=== PATIENT | female | born 1950 | race Caucasian/White ===

== ENCOUNTER 2020-07-06 16:00 | Emergency (ER) | payer OTHER ==
--- NOTE | 2020-07-06 16:08 | PDOC ---
Rapid Medical Evaluation Time Seen by Provider: 07/06/20 16:07 Medical Evaluation: Allergies Allergy/AdvReac Type Severity Reaction Status Date / Time codeine Allergy Rash Verified 03/23/20 17:48 iodine [Iodine] Allergy Rash Verified 03/23/20 17:48 Penicillins Allergy Rash Verified 03/23/20 17:48 07/06/20 16:07 I have performed a brief in-person examination on this patient. CC: atraumatic left knee pain. PE: No bony tenderness. TTP to left popliteal. Orders: xray Patient will proceed to ED for further evaluation. Discharge Disposition - Diagnosis Knee pain - Referrals - Patient Instructions - Post Discharge Activity
[2020-07-06 16:15] VITALS: BP 141/69; PULSE 66; TEMP 98.6; BMI 29.2
--- NOTE | 2020-07-06 17:11 | PDOC ---
History of Present Illness - General Chief Complaint: Injury Stated Complaint: FALL Time Seen by Provider: 07/06/20 16:07 - History of Present Illness Initial Comments: 07/06/20 17:10 69-year-old female with multiple comorbidities coronary artery disease and diabetes presents for evaluation of left knee pain. She states she was walking she felt her left knee buckle and had an sudden onset of pain. No prior problems with the left knee. Past History - Medical History Allergies/Adverse Reactions: Allergies Allergy/AdvReac Type Severity Reaction Status Date / Time codeine Allergy Rash Verified 07/06/20 16:08 iodine [Iodine] Allergy Rash Verified 07/06/20 16:08 Penicillins Allergy Rash Verified 07/06/20 16:08 Home Medications: Ambulatory Orders Metoprolol Tartrate [Lopressor -] 25 mg PO HS 03/24/16 Letrozole [Femara -] 2.5 mg PO DAILY tablet 03/31/16 Aspirin [ASA -] 81 mg PO DAILY 03/23/20 Clopidogrel Bisulfate [Plavix -] 75 mg PO DAILY 03/23/20 Enalapril Maleate [Vasotec -] 10 mg PO BID 03/23/20 Metformin HCl [Glucophage] 1,000 mg PO BID 03/23/20 Metoprolol Tartrate [Lopressor -] 50 mg PO AM 03/23/20 Pravastatin Sodium 20 mg PO HS 03/23/20 Anemia: No Asthma: No Cancer: Yes (B/L BREAST4 yrs ago) Cardiac Disorders: No CVA: No COPD: No CHF: No Dementia: No Diabetes: No GI Disorders: Yes (GERD) Disorders: Yes (H/O UTI ESBL, Renal Calculi) HTN: Yes Hypercholesterolemia: Yes Liver Disease: No Seizures: No Thyroid Disease: No - Surgical History Abdominal Surgery: No Appendectomy: No Cardiac Surgery: No Cholecystectomy: Yes (38 yrs ago) Lung Surgery: No Neurologic Surgery: No Orthopedic Surgery: No - Immunization History Immunization Up to Date: Yes () - Psycho-Social/Smoking History Smoking Status: No Smoking History: Former smoker Have you smoked in the past 12 months: No Number of Cigarettes Smoked Daily: 0 If you are a former smoker, when did you quit?: 2012 Information on smoking cessation initiated: No 'Breaking Loose' booklet given: 04/22/13 - Substance Abuse Hx (Audit-C & DAST Scrn) How often the patient has a drink containing alcohol: Never Score: In Men: 4 or > Positive; In Women: 3 or > Positive: 0 Screen Result (Pos requires Nsg. Audit-10AR): Negative In the last yr the pt used illegal drug/Rx for NonMed reason: No Score: Yes response is considered Positive: 0 Screen Result (Positive result requires Nsg. DAST-10): Negative Review of Systems - Review of Systems Musculoskeletal: Yes: Joint Pain *Physical Exam - Vital Signs Last Vital Signs Temp Pulse Resp BP Pulse Ox 98.6 F 66 16 141/69 98 07/06/20 16:08 07/06/20 16:08 07/06/20 16:08 07/06/20 16:08 07/06/20 16:08 - Physical Exam 07/06/20 17:10 Left knee skin color and temperature normal extensor mechanism is intact. 0 to 90 degrees. She is unable to tolerate stability testing she has no intra- articular effusion diffuse tenderness thigh and calf soft and nontender normal ankle and hip range of motion neurovascular intact Medical Decision Making - Medical Decision Making 07/06/20 17:10 No fracture trauma or destructive process on radiograph. Unable to rule out a tibial plateau fracture based on this view. Knee immobilizer nonweightbearing follow-up with orthopedics. Patient is in agreement Tylenol for pain I have reviewed the pathophysiology with the patient. They are in agreement with the treatment plan all questions were answered to their satisfaction. Understanding for follow-up without fail was also conveyed to the patient. Again they are in agreement. Discharge - Discharge Information Problems reviewed: Yes Clinical Impression/Diagnosis: Knee pain Condition: Stable Disposition: HOME - Admission No - Follow up/Referral Referrals: Jennifer Ferraro MD [Primary Care Provider] - Silvestre Apple DO [Staff Physician] - - Patient Discharge Instructions Additional Instructions: Remain nonweightbearing with the crutches and knee immobilizer. Tylenol as directed for pain. Return to the emergency room for worsening symptoms and without fail follow-up with orthopedic surgery in 1 to 2 days for further evaluation and treatment options. - Post Discharge Activity
[2020-07-06] MEDS ORDERED: ACETAMINOPHEN 500 MG TABLET (FP) PO ONE (17:31)
== END 2020-07-06 17:30 | disposition home or self-care (01) ==
LOC: JERFT 16:00
DX: M25.562 Pain in left knee (principal)
CPT/HCPCS: 73560-TC-LT-FY; 99283-25

== ENCOUNTER 2020-11-10 12:31 | Emergency (ER) | payer OTHER ==
[2020-11-10 12:55] VITALS: BMI 28.3
[2020-11-10] MEDS ORDERED: BAMLANIVIMAB 700 MG in SODIUM CHLORIDE 250 ML IVPB ONE (13:11)
[2020-11-10 16:05] VITALS: BP 99/49; PULSE 64; TEMP 98.4
[2020-11-10 16:37] LABS: HEMATOCRIT 41.1 % (32.4-45.2); HEMOGLOBIN 13.8 GM/dL (10.7-15.3); MCH 28.2 pg (25.7-33.7); MCHC 33.5 g/dl (32.0-36.0); MEAN CELL VOLUME 84.1 fl (80-96); MEAN PLT VOLUME 8.1 fl (7.5-11.1); PLATELET COUNT 193 K/MM3 (134-434); RBC 4.89 M/mm3 (3.60-5.2); RDW 16.1 % (11.6-15.6); WHITE BLOOD COUNT 4.4 K/mm3 (4.0-10.0)
[2020-11-10 16:53] LABS: POTASSIUM 5.8 mmol/L (3.5-5.1)
[2020-11-10 16:56] LABS: BLOOD UREA NITROGEN 18.4 mg/dL (7-18); CALCIUM 9.2 mg/dL (8.5-10.1)
[2020-11-10 17:00] LABS: CREATININE 0.9 mg/dL (0.55-1.3)
== END 2020-11-10 17:35 | disposition home or self-care (01) ==
LOC: JCOVINFU 12:31
DX: U07.1 COVID-19 (principal)
CPT/HCPCS: 36415; 80048; 85027; 96374; 99284-25; M0239; Q0239

== ENCOUNTER 2021-05-28 04:45 | Day surgery (SDC) | payer OTHER ==
[2021-04-07 14:51] VITALS: BMI 28.8
[2021-05-28 12:41] VITALS: BP 125/58; PULSE 65; TEMP 97.8
== END 2021-05-28 14:02 | disposition home or self-care (01) ==
LOC: JASU-ENDO 04:45
PROVIDERS: ATTEND Internal Medicine Gastroenterology
PROC: 0DJD8ZZ Inspection of Lower Intestinal Tract, Via Natural or Artificial Opening Endoscopic (ICD-10-PCS; principal; 2021-05-28 11:45)
DX: Z12.11 Encounter for screening for malignant neoplasm of colon (principal); K57.30 Diverticulosis of large intestine without perforation or abscess without bleeding; K64.8 Other hemorrhoids; Z86.010 Personal history of colon polyps; Z98.0 Intestinal bypass and anastomosis status; Z80.0 Family history of malignant neoplasm of digestive organs
CPT/HCPCS: 82962

== ENCOUNTER 2022-01-02 02:45 | Observation (INO) | payer OTHER ==
[2022-01-02] MEDS ORDERED: ACETAMINOPHEN 1000 MG/100 ML BAG IVPB ONE (03:44)
[2022-01-02] MEDS ORDERED: METOCLOPRAMIDE HCL INJECTION 10 MG/2 ML VIAL IVPUSH ONE (03:44)
[2022-01-02] MEDS ORDERED: METOCLOPRAMIDE HCL INJECTION 10 MG/2 ML VIAL ONE (04:18)
[2022-01-02 04:19] LABS: INR 0.92 (0.83-1.09); PROTHROMBIN TIME (PATIENT) 10.6 SEC (9.7-13.0)
[2022-01-02] MEDS ORDERED: ACETAMINOPHEN INJECTION 100 ML IVPB ONE (04:19)
[2022-01-02 04:22] LABS: ACTIVATED PTT 32.3 SECONDS (25.2-36.5)
[2022-01-02 04:30] LABS: BASO % 0.9 % (0-2.0); EOS % 2.5 % (0-4.5); HEMOGLOBIN 13.8 GM/dL (10.7-15.3); LYMPH % 17.6 % (8-40); MCH 27.6 pg (25.7-33.7); MEAN CELL VOLUME 83.6 fl (80-96); MEAN PLT VOLUME 8.2 fl (7.5-11.1); PLATELET COUNT 266 10^3/uL (134-434); RBC 5.02 M/mm3 (3.60-5.2); RDW 15.9 % (11.6-15.6); WHITE BLOOD COUNT 7.7 K/mm3 (4.0-10.0)
[2022-01-02 04:34] LABS: BLOOD UREA NITROGEN 15.5 mg/dL (7-18); CALCIUM 9.7 mg/dL (8.5-10.1); MAGNESIUM 1.7 mg/dL (1.8-2.4)
[2022-01-02 04:37] LABS: CREATININE 0.8 mg/dL (0.55-1.3)
[2022-01-02 04:39] LABS: BILIRUBIN,TOTAL 0.6 mg/dL (0.2-1)
[2022-01-02 05:14] VITALS: TEMP 98.9; BMI 28.3
[2022-01-02 06:16] LABS: ERYTHROCYTE SEDIMENTATION RATE 12 mm/hr (0-30)
[2022-01-02] MEDS ORDERED: ASPIRIN 325 MG TABLET PO ONE (06:40)
[2022-01-02] MEDS ORDERED: ASPIRIN 325 MG TABLET ONE (06:51)
[2022-01-02] MEDS ORDERED: ENOXAPARIN NA (PORCINE) 40 MG/0.4 ML DISP.SYRIN SQ ONE (09:27)
[2022-01-02] MEDS ORDERED: ENOXAPARIN NA (PORCINE) 40 MG/0.4 ML DISP.SYRIN SQ SCH (10:00)
[2022-01-02] MEDS ORDERED: ASPIRIN 81 MG CHEWABLE TABLETS PO SCH (10:00)
[2022-01-02] MEDS ORDERED: CLOPIDOGREL BISULFATE 75 MG TABLET (FP) PO SCH (10:00)
[2022-01-02] MEDS ORDERED: ENALAPRIL MALEATE 10 MG TABLET PO SCH (10:00)
[2022-01-02] MEDS ORDERED: ASPIRIN 81 MG CHEWABLE TABLETS ONE (10:27)
[2022-01-02] MEDS ORDERED: CLOPIDOGREL BISULFATE 75 MG TABLET (FP) ONE (10:27)
[2022-01-02] MEDS ORDERED: INSULIN SLIDING SCALE (NOVOLOG) 1 VIAL SQ SCH (11:00)
[2022-01-02 12:15] VITALS: BP 108/65; PULSE 80
[2022-01-02] MEDS ORDERED: ATORVASTATIN CA 40 MG TABLET (FP) PO SCH (22:00)
[2022-01-02] MEDS ORDERED: METOPROLOL TARTRATE 25 MG TABLET (FP) PO SCH (22:00)
[2022-01-03] MEDS ORDERED: METOPROLOL TARTRATE 50 MG TABLET (FP) PO SCH (07:00)
[2022-01-03] MEDS ORDERED: ENOXAPARIN NA (PORCINE) 40 MG/0.4 ML DISP.SYRIN SQ SCH (10:00)
== END 2022-01-02 13:38 | disposition home or self-care (01) ==
LOC: JER 02:45 → JERBED 06:30
PROVIDERS: ADMIT Internal Medicine Cardiovascular Disease; ATTEND Nurse Practitioner Acute Care
PROC: 3E033NZ Introduction of Analgesics, Hypnotics, Sedatives into Peripheral Vein, Percutaneous Approach (ICD-10-PCS; principal; 2022-01-02)
PROC: 3E023GC Introduction of Other Therapeutic Substance into Muscle, Percutaneous Approach (ICD-10-PCS; 2022-01-02)
PROC: 3E033GC Introduction of Other Therapeutic Substance into Peripheral Vein, Percutaneous Approach (ICD-10-PCS; 2022-01-02)
DX: R94.31 Abnormal electrocardiogram [ECG] [EKG] (principal); I10 Essential (primary) hypertension; R51.9 Headache, unspecified; Z95.5 Presence of coronary angioplasty implant and graft; R79.89 Other specified abnormal findings of blood chemistry; Z90.49 Acquired absence of other specified parts of digestive tract; Z29.9 Encounter for prophylactic measures, unspecified; C50.919 Malignant neoplasm of unspecified site of unspecified female breast; Z86.718 Personal history of other venous thrombosis and embolism; Z88.6 Allergy status to analgesic agent; Z88.0 Allergy status to penicillin; Z88.8 Allergy status to other drugs, medicaments and biological substances
CPT/HCPCS: 36415; 70450-TC; 80053; 82962; 83735; 84484; 85025; 85610; 85651; 85730; 86140; 86850; 86900; 86901; 93005; 93010; 96372; 96374; 96375; 99285-25; C9803-CS; G0378; U0003; U0005

== ENCOUNTER 2022-11-03 14:14 | Inpatient (IN) | payer OTHER ==
[2022-11-03 14:42] VITALS: BMI 27.6
[2022-11-03 16:30] LABS: EOS % 1.9 % (0-4.5); HEMATOCRIT 39.5 % (32.4-45.2); HEMOGLOBIN 13.2 GM/dL (10.7-15.3); LYMPH % 23.9 % (8-40); MCH 27.7 pg (25.7-33.7); MCHC 33.4 g/dl (32.0-36.0); MEAN CELL VOLUME 82.7 fl (80-96); MEAN PLT VOLUME 7.6 fl (7.5-11.1); MONO % 13.7 % (3.8-10.2); NEUT % 59.5 % (42.8-82.8); PLATELET COUNT 228 10^3/uL (134-434); RBC 4.78 M/mm3 (3.60-5.2); RDW 15.8 % (11.6-15.6); WHITE BLOOD COUNT 6.7 K/mm3 (4.0-10.0)
[2022-11-03 16:38] LABS: INR 1.17 (0.83-1.09); PROTHROMBIN TIME (PATIENT) 13.5 SEC (9.7-13.0)
[2022-11-03 16:40] LABS: ACTIVATED PTT 28.2 SECONDS (25.2-36.5)
[2022-11-03 16:57] LABS: CHLORIDE 102 mmol/L (98-107); SODIUM 138 mmol/L (136-145)
[2022-11-03 16:59] LABS: ALBUMIN 3.5 g/dl (3.4-5.0); ANION GAP 9 MMOL/L (8-16); CALCIUM 10.1 mg/dL (8.5-10.1); CO2 27 mmol/L (21-32); GLUCOSE,RANDOM 81 mg/dL (74-106)
[2022-11-03 17:00] LABS: BLOOD UREA NITROGEN 28.7 mg/dL (7-18)
[2022-11-03 17:02] LABS: CREATININE 1.1 mg/dL (0.55-1.3)
[2022-11-03 17:03] LABS: SGOT/AST 25 U/L (15-37); SGPT/ALT 16 U/L (13-61)
[2022-11-03 17:04] LABS: TOT PROT 7.8 g/dl (6.4-8.2)
[2022-11-03 17:05] LABS: ALK PHOS 96 U/L (45-117)
[2022-11-03] MEDS ORDERED: ASPIRIN 81 MG CHEWABLE TABLETS PO ONE (18:09)
[2022-11-03 18:47] LABS: MAGNESIUM 1.7 mg/dL (1.8-2.4)
[2022-11-03 18:50] LABS: CHOLESTEROL 171 mg/dL (50-200)
[2022-11-03 18:51] LABS: TRIGLYCERIDES 137 mg/dL (0-150)
[2022-11-03 18:52] LABS: LDL CHOLESTEROL (ONLY SJRH) 87 mg/dL (5-100)
[2022-11-03 18:53] LABS: HDL CHOLESTEROL 67 mg/dL (40-60)
[2022-11-03 18:55] LABS: N-TERMINAL BNP 2806.1 pg/ml (5-125)
[2022-11-03] MEDS ORDERED: ASPIRIN 81 MG CHEWABLE TABLETS ONE (19:12)
[2022-11-03] MEDS ORDERED: ATORVASTATIN CA 80 MG TABLET (FP) PO ONE (20:47)
[2022-11-03] MEDS ORDERED: ENOXAPARIN NA (PORCINE) 60 MG/0.6 ML DISP.SYRIN SQ ONE ×2 (21:00→21:13)
[2022-11-03] MEDS ORDERED: ATORVASTATIN CA 80 MG TABLET (FP) ONE (21:13)
[2022-11-04] MEDS ORDERED: MAGNESIUM 2GM/50ML STERILE WATER IVPB IVPB ONE (03:15)
[2022-11-04] MEDS: INSULIN SLIDING SCALE (NOVOLOG) 1 VIAL SQ SCH ×4 (07:04→21:16)
[2022-11-04 08:15] LABS: BASO % 1.1 % (0-2.0); EOS % 3.3 % (0-4.5); HEMATOCRIT 38.9 % (32.4-45.2); HEMOGLOBIN 12.7 GM/dL (10.7-15.3); LYMPH % 29.9 % (8-40); MCH 27.3 pg (25.7-33.7); MCHC 32.8 g/dl (32.0-36.0); MEAN CELL VOLUME 83.2 fl (80-96); MEAN PLT VOLUME 7.9 fl (7.5-11.1); MONO % 8.2 % (3.8-10.2); NEUT % 57.5 % (42.8-82.8); PLATELET COUNT 213 10^3/uL (134-434); RBC 4.67 M/mm3 (3.60-5.2); RDW 15.7 % (11.6-15.6); WHITE BLOOD COUNT 5.8 K/mm3 (4.0-10.0)
[2022-11-04 08:40] LABS: ALBUMIN 3.3 g/dl (3.4-5.0); CALCIUM 9.2 mg/dL (8.5-10.1); MAGNESIUM 2.5 mg/dL (1.8-2.4)
[2022-11-04 08:43] LABS: CREATININE 0.8 mg/dL (0.55-1.3); PHOSPHOROUS 3.7 mg/dL (2.5-4.9)
[2022-11-04 08:45] LABS: TOT PROT 6.9 g/dl (6.4-8.2)
[2022-11-04] MEDS: CLOPIDOGREL BISULFATE 75 MG TABLET (FP) PO SCH (09:09)
[2022-11-04] MEDS: ENOXAPARIN NA (PORCINE) 60 MG/0.6 ML DISP.SYRIN SQ SCH ×2 (09:09→21:21)
[2022-11-04] MEDS ORDERED: METOPROLOL TARTRATE 5 MG/5 ML VIAL IVPUSH SCH ×3 (09:15→14:00)
[2022-11-04] MEDS: METOPROLOL SUCCINATE 50 MG, METOPROLOL SUCCINATE 25 MG PO SCH (09:23)
[2022-11-04] MEDS ORDERED: ASPIRIN 81 MG CHEWABLE TABLETS PO SCH (10:00)
[2022-11-04] MEDS: LETROZOLE 2.5 MG TABLET (FP) PO SCH (10:46)
[2022-11-04] MEDS ORDERED: METOPROLOL TARTRATE 5 MG/5 ML VIAL IVPUSH PRN (17:56)
[2022-11-04] MEDS: ATORVASTATIN CA 80 MG TABLET (FP) PO SCH (21:21)
[2022-11-05] MEDS: INSULIN SLIDING SCALE (NOVOLOG) 1 VIAL SQ SCH ×4 (06:36→21:16)
[2022-11-05] MEDS: OMEGA-3 ACID ETHYL ESTERS (FATTY-ACIDS) 1 GM CAPSULE (FP) PO SCH (11:06)
[2022-11-05] MEDS: LETROZOLE 2.5 MG TABLET (FP) PO SCH (11:06)
[2022-11-05] MEDS: CLOPIDOGREL BISULFATE 75 MG TABLET (FP) PO SCH (11:06)
[2022-11-05] MEDS: METOPROLOL SUCCINATE 50 MG, METOPROLOL SUCCINATE 25 MG PO SCH (11:07)
[2022-11-05] MEDS: ENOXAPARIN NA (PORCINE) 60 MG/0.6 ML DISP.SYRIN SQ SCH (11:08)
[2022-11-05] MEDS: RANOLAZINE E.R. 500 MG TABLET (FP) PO SCH ×2 (11:09→21:15)
[2022-11-05] MEDS: VALSARTAN 40 MG TABLET PO SCH (11:09)
[2022-11-05] MEDS: PANTOPRAZOLE 40 MG TABLET PO SCH (13:31)
[2022-11-05] MEDS: SERTRALINE HCL 25 MG TABLET (FP) PO SCH (13:31)
[2022-11-05] MEDS: ATORVASTATIN CA 80 MG TABLET (FP) PO SCH (21:15)
[2022-11-06] MEDS: INSULIN SLIDING SCALE (NOVOLOG) 1 VIAL SQ SCH ×4 (06:26→21:54)
[2022-11-06 08:51] LABS: BASO % 0.6 % (0-2.0); EOS % 3.6 % (0-4.5); HEMATOCRIT 37.4 % (32.4-45.2); HEMOGLOBIN 12.7 GM/dL (10.7-15.3); LYMPH % 23.9 % (8-40); MCH 27.8 pg (25.7-33.7); MEAN CELL VOLUME 81.9 fl (80-96); MEAN PLT VOLUME 7.5 fl (7.5-11.1); MONO % 9.1 % (3.8-10.2); NEUT % 62.8 % (42.8-82.8); PLATELET COUNT 236 10^3/uL (134-434); RBC 4.57 M/mm3 (3.60-5.2); RDW 15.5 % (11.6-15.6); WHITE BLOOD COUNT 4.9 K/mm3 (4.0-10.0)
[2022-11-06 09:28] LABS: ALBUMIN 3.1 g/dl (3.4-5.0); BILIRUBIN,TOTAL 0.8 mg/dL (0.2-1); BLOOD UREA NITROGEN 21.9 mg/dL (7-18); CALCIUM 9.4 mg/dL (8.5-10.1); CREATININE 0.6 mg/dL (0.55-1.3); TOT PROT 6.9 g/dl (6.4-8.2)
[2022-11-06] MEDS: LETROZOLE 2.5 MG TABLET (FP) PO SCH (09:54)
[2022-11-06] MEDS: VALSARTAN 40 MG TABLET PO SCH (09:54)
[2022-11-06] MEDS: RANOLAZINE E.R. 500 MG TABLET (FP) PO SCH ×2 (09:54→21:51)
[2022-11-06] MEDS: CLOPIDOGREL BISULFATE 75 MG TABLET (FP) PO SCH (09:54)
[2022-11-06] MEDS: SERTRALINE HCL 25 MG TABLET (FP) PO SCH (09:54)
[2022-11-06] MEDS: OMEGA-3 ACID ETHYL ESTERS (FATTY-ACIDS) 1 GM CAPSULE (FP) PO SCH (09:54)
[2022-11-06] MEDS: PANTOPRAZOLE 40 MG TABLET PO SCH (09:55)
[2022-11-06] MEDS: ATORVASTATIN CA 80 MG TABLET (FP) PO SCH (21:54)
[2022-11-07] MEDS: INSULIN SLIDING SCALE (NOVOLOG) 1 VIAL SQ SCH ×4 (06:11→21:00)
[2022-11-07 08:06] LABS: BASO % 0.8 % (0-2.0); EOS % 4.3 % (0-4.5); LYMPH % 25.7 % (8-40); MCH 27.6 pg (25.7-33.7); MCHC 33.4 g/dl (32.0-36.0); MEAN CELL VOLUME 82.6 fl (80-96); MEAN PLT VOLUME 7.4 fl (7.5-11.1); NEUT % 60.2 % (42.8-82.8); PLATELET COUNT 248 10^3/uL (134-434); RBC 4.72 M/mm3 (3.60-5.2); RDW 15.1 % (11.6-15.6); WHITE BLOOD COUNT 5.1 K/mm3 (4.0-10.0)
[2022-11-07 08:38] LABS: CALCIUM 9.6 mg/dL (8.5-10.1)
[2022-11-07 08:39] LABS: ALBUMIN 3.3 g/dl (3.4-5.0); BLOOD UREA NITROGEN 17.1 mg/dL (7-18)
[2022-11-07 08:41] LABS: CREATININE 0.6 mg/dL (0.55-1.3)
[2022-11-07 08:42] LABS: TOT PROT 7.3 g/dl (6.4-8.2)
[2022-11-07 08:43] LABS: BILIRUBIN,TOTAL 0.7 mg/dL (0.2-1)
[2022-11-07] MEDS: RANOLAZINE E.R. 500 MG TABLET (FP) PO SCH ×2 (10:21→21:00)
[2022-11-07] MEDS: CLOPIDOGREL BISULFATE 75 MG TABLET (FP) PO SCH (10:21)
[2022-11-07] MEDS: OMEGA-3 ACID ETHYL ESTERS (FATTY-ACIDS) 1 GM CAPSULE (FP) PO SCH (10:21)
[2022-11-07] MEDS: PANTOPRAZOLE 40 MG TABLET PO SCH (10:21)
[2022-11-07] MEDS: SERTRALINE HCL 25 MG TABLET (FP) PO SCH (10:21)
[2022-11-07] MEDS: VALSARTAN 40 MG TABLET PO SCH (10:21)
[2022-11-07] MEDS: LETROZOLE 2.5 MG TABLET (FP) PO SCH (10:22)
[2022-11-07] MEDS: ENOXAPARIN NA (PORCINE) 40 MG/0.4 ML DISP.SYRIN SQ SCH (10:22)
[2022-11-07] MEDS ORDERED: REGADENOSON 0.4 MG/5 ML PRE-FILLED SYRINGE IVPUSH ONE ×2 (13:00→14:42)
[2022-11-07] MEDS: ATORVASTATIN CA 80 MG TABLET (FP) PO SCH (21:01)
[2022-11-08 05:57] VITALS: RESP 18
[2022-11-08] MEDS: INSULIN SLIDING SCALE (NOVOLOG) 1 VIAL SQ SCH ×2 (06:29→11:48)
[2022-11-08 08:28] LABS: HEMATOCRIT 40.9 % (32.4-45.2); HEMOGLOBIN 13.8 GM/dL (10.7-15.3); MCH 27.9 pg (25.7-33.7); MCHC 33.7 g/dl (32.0-36.0); MEAN CELL VOLUME 82.7 fl (80-96); MEAN PLT VOLUME 7.6 fl (7.5-11.1); RBC 4.95 M/mm3 (3.60-5.2); RDW 15.4 % (11.6-15.6); WHITE BLOOD COUNT 6.5 K/mm3 (4.0-10.0)
[2022-11-08 08:51] LABS: CHLORIDE 104 mmol/L (98-107); SODIUM 134 mmol/L (136-145)
[2022-11-08 08:54] LABS: BLOOD UREA NITROGEN 21.4 mg/dL (7-18); CALCIUM 9.8 mg/dL (8.5-10.1); CO2 25 mmol/L (21-32); GLUCOSE,RANDOM 158 mg/dL (74-106); MAGNESIUM 1.7 mg/dL (1.8-2.4)
[2022-11-08 08:57] LABS: PHOSPHOROUS 3.8 mg/dL (2.5-4.9)
[2022-11-08 08:58] LABS: CREATININE 0.8 mg/dL (0.55-1.3)
[2022-11-08 09:09] LABS: ANION GAP 4 MMOL/L (8-16)
[2022-11-08 09:23] LABS: PLATELET COUNT 280 10^3/uL (134-434)
[2022-11-08] MEDS ORDERED: ASPIRIN COATED 81 MG TABLET.EC PO SCH (10:00)
[2022-11-08] MEDS ORDERED: MAGNESIUM OXIDE 400 MG TABLET (FP) PO ONE (10:38)
[2022-11-08] MEDS: VALSARTAN 40 MG TABLET PO SCH (10:42)
[2022-11-08] MEDS: PANTOPRAZOLE 40 MG TABLET PO SCH (10:42)
[2022-11-08] MEDS: ENOXAPARIN NA (PORCINE) 40 MG/0.4 ML DISP.SYRIN SQ SCH (10:42)
[2022-11-08] MEDS: RANOLAZINE E.R. 500 MG TABLET (FP) PO SCH (10:43)
[2022-11-08] MEDS: CLOPIDOGREL BISULFATE 75 MG TABLET (FP) PO SCH (10:43)
[2022-11-08] MEDS: SERTRALINE HCL 25 MG TABLET (FP) PO SCH (10:43)
[2022-11-08] MEDS: OMEGA-3 ACID ETHYL ESTERS (FATTY-ACIDS) 1 GM CAPSULE (FP) PO SCH (10:45)
[2022-11-08] MEDS: LETROZOLE 2.5 MG TABLET (FP) PO SCH (10:45)
[2022-11-08 11:27] VITALS: BP 99/62; PULSE 76; TEMP 98.4
[2022-11-08] MEDS ORDERED: ATORVASTATIN CA 10 MG TABLET (FP) PO SCH (22:00)
== END 2022-11-08 15:36 | disposition home or self-care (01) | DRG 303 ==
LOC: JER 14:14 → JERBED 20:10 → J4S 23:43
PROVIDERS: ADMIT Internal Medicine; ATTEND Internal Medicine
DX: I25.119 Atherosclerotic heart disease of native coronary artery with unspecified angina pectoris (principal); I24.8 Other forms of acute ischemic heart disease; I71.40 Abdominal aortic aneurysm, without rupture, unspecified; E11.9 Type 2 diabetes mellitus without complications; I10 Essential (primary) hypertension; R07.89 Other chest pain; I25.10 Atherosclerotic heart disease of native coronary artery without angina pectoris; Z95.5 Presence of coronary angioplasty implant and graft; E78.5 Hyperlipidemia, unspecified; K21.9 Gastro-esophageal reflux disease without esophagitis
CPT/HCPCS: 36415; 71045-TC-FY; 76775-TC; 78452-TC; 80048; 80053; 80061; 82962; 83036; 83735; 83880; 84100; 84443; 84484; 85025; 85027; 85610; 85730; 93005; 93010; 93017; 93306-TC; 99285-25; A9502; C9803-CS; J2785; U0003; U0005